=== PATIENT | female | born 1970 | race Caucasian/White ===

== ENCOUNTER 2024-11-09 12:27 | Emergency (ER) | payer OTHER ==
[2024-11-09 13:29] LABS: ALT (SGPT) 36 U/L (Less than 34); AST (SGOT) 51 U/L (11-34); Albumin 3.6 g/dL (3.1-4.5); Alkaline Phosphatase 95 U/L (40-110); Anion Gap 13 mmol/L (10-20); BUN (Urea Nitrogen) 15 mg/dL (9.8-20.1); Bilirubin, Total 0.6 mg/dL (0.3-1.2); Calc. Creatinine Clearance 0 mL/min (70-130); Calcium 8.6 mg/dL (7.8-10.44); Carbon Dioxide 25 mmol/L (22-29); Chloride 104 mmol/L (98-107); Globulin 2.5 g/dL (2.4-3.5); Glucose 103 mg/dL (70-105); Potassium 3.9 mmol/L (3.5-5.1); Sodium 138 mmol/L (136-145)
[2024-11-09 13:30] LABS: Acetaminophen Less than 10 mcg/mL (Less than 10); Salicylate Less than 8.0 mg/dL (Less than 8.0)
[2024-11-09 13:34] LABS: #Basophils 0.04 10x3/uL (0.0-0.2); #Eosinophils 0.26 10x3/uL (0.0-0.5); #Monocytes 0.57 10x3/uL (0.0-1.1); #Neutrophils 2.52 10x3/uL (1.5-8.4); %Basophils 0.8 % (0.0-2.0); %Eosinophils 4.9 % (0.0-6.0); %Lymphocytes 36.1 % (18.0-47.0); %Monocytes 10.7 % (0.0-10.0); %Neutrophils 47.3 % (40.0-75.0); Hematocrit 33.9 % (34.9-44.5); Hemoglobin 10.8 g/dL (12.0-15.5); Mean Corpuscular Hemoglobin 23.3 pg (27.0-33.0); Mean Corpuscular Volume 73.1 fL (81.6-98.3); Platelet Count 389 10x3/uL (150-450); Red Blood Cell (RBC) Count 4.64 10x6/uL (3.90-5.03); White Blood Cell (WBC) Count 5.32 10x3/uL (3.5-10.5)
[2024-11-09 13:51] LABS: Microcytosis SLIGHT = 6-15 cells (100X) (0-5/hpf); Ovalocytes SLIGHT = 2-5 cells (100X) (0-1/hpf)
[2024-11-09] MEDS ORDERED: Boostrix 0.5 ML (Tdap) VIAL (>/=7 yrs of age) ONE (13:59)
== END 2024-11-09 18:30 | disposition home or self-care (01) ==
LOC: CSHERS 12:27 → EEVIPCON 12:27 → CSHERS 18:30
DX: S51.811A Laceration without foreign body of right forearm, initial encounter (principal); R45.851 Suicidal ideations; Z23 Encounter for immunization; X78.9XXA Intentional self-harm by unspecified sharp object, initial encounter
CPT/HCPCS: 12002; 36415; 80053; 80307; 85025; 90471; 90715; 93005

== ENCOUNTER 2025-02-11 13:14 | Emergency (ER) | payer OTHER ==
[2025-02-11 15:20] LABS: #Basophils 0.05 10x3/uL (0.0-0.2); #Eosinophils 0.18 10x3/uL (0.0-0.5); #Monocytes 0.97 10x3/uL (0.0-1.1); #Neutrophils 5.49 10x3/uL (1.5-8.4); %Basophils 0.6 % (0.0-2.0); %Eosinophils 2.0 % (0.0-6.0); %Lymphocytes 23.4 % (18.0-47.0); %Monocytes 11.0 % (0.0-10.0); %Neutrophils 62.5 % (40.0-75.0); Hematocrit 34.0 % (34.9-44.5); Hemoglobin 11.1 g/dL (12.0-15.5); Mean Corpuscular Hemoglobin 24.3 pg (27.0-33.0); Mean Corpuscular Volume 74.4 fL (81.6-98.3); Platelet Count 355 10x3/uL (150-450); Red Blood Cell (RBC) Count 4.57 10x6/uL (3.90-5.03); White Blood Cell (WBC) Count 8.79 10x3/uL (3.5-10.5)
[2025-02-11 15:23] LABS: ALT (SGPT) 56 U/L (Less than 34); AST (SGOT) 103 U/L (11-34); Albumin 3.4 g/dL (3.1-4.5); Alkaline Phosphatase 114 U/L (40-110); Anion Gap 12 mmol/L (10-20); BUN (Urea Nitrogen) 8 mg/dL (9.8-20.1); Bilirubin, Total 0.2 mg/dL (0.3-1.2); Calc. Creatinine Clearance 0 mL/min (70-130); Calcium 9.1 mg/dL (7.8-10.44); Carbon Dioxide 28 mmol/L (22-29); Chloride 99 mmol/L (98-107); Globulin 3.1 g/dL (2.4-3.5); Glucose 147 mg/dL (70-105); Potassium 4.3 mmol/L (3.5-5.1); Sodium 135 mmol/L (136-145)
== END 2025-02-11 17:00 | disposition home or self-care (01) ==
LOC: CSHERS 13:14
DX: S09.90XA Unspecified injury of head, initial encounter (principal); R79.89 Other specified abnormal findings of blood chemistry; Z55.6 Problems related to health literacy; W01.10XA Fall on same level from slipping, tripping and stumbling with subsequent striking against unspecified object, initial encounter
CPT/HCPCS: 36416; 70450; 72125; 80053; 85025; 93005